=== PATIENT | female | born 1960 | race Caucasian/White ===

== ENCOUNTER → 2017-08-29 | Outpatient (CLI) | payer BC ==
[2017-08-29 09:24] LABS: HEMATOCRIT 42.4 % (34.6-47.8); HEMOGLOBIN 14.2 g/dL (11.7-16.4); WHITE BLOOD COUNT 6.1 x10^3/uL (3.4-10)
[2017-08-29 09:36] LABS: BLOOD UREA NITROGEN 16 mg/dL (7-18)
[2017-08-29 09:41] LABS: ASPARTATE AMINO TRANSFERASE 23 U/L (15-37)
== END | disposition home or self-care (01) ==
LOC: STAR 08:22
PROVIDERS: ATTEND Urology
DX: Z01.811 Encounter for preprocedural respiratory examination (principal); J45.909 Unspecified asthma, uncomplicated; M12.9 Arthropathy, unspecified; D41.02 Neoplasm of uncertain behavior of left kidney
CPT/HCPCS: 36415; 71020; 80053; 81003; 85025; 87077; 87086

== ENCOUNTER 2017-09-04 07:30 | Day surgery (SDC) | payer BC ==
[2017-08-29 08:22] VITALS: BP 134/89
[~2017-09-04] VITALS: Ht 180.3 cm; Wt 78.4 kg
[~2017-09-04 07:30] MED LIST: CETI1TAB33 PO; CHOL2000 PO
[2017-09-04] MEDS ORDERED: LACTATED RINGERS 1,000 ML IV SCH ×2 (07:57→08:06)
[2017-09-04] MEDS ORDERED: LIDOCAINE 1%, 2ML SQ PRN ×2 (08:00→08:30)
[2017-09-04] MEDS ORDERED: MIDAZOLAM 1 MG/ML, 5ML ONE (09:34)
[2017-09-04] MEDS ORDERED: FENTANYL PF 100 MCG/2ML ONE (09:34)
[2017-09-04] MEDS ORDERED: ONDANSETRON 2MG/ML, 2ML ONE (09:42)
[2017-09-04] MEDS ORDERED: SUCCINYLCHOLINE 20 MG/ML, 10ML ONE (09:42)
[2017-09-04] MEDS ORDERED: PROPOFOL 10 MG/ML, 20ML ONE (09:42)
[2017-09-04] MEDS ORDERED: ROCURONIUM 10 MG/ML,10ML ONE (09:42)
[2017-09-04] MEDS ORDERED: DEXAMETHASONE 4 MG/ML, 1ML ONE (09:42)
[2017-09-04] MEDS ORDERED: LIDOCAINE 2%, 20ML ONE (10:00)
[2017-09-04] MEDS ORDERED: PROMETHAZINE 25 MG/ML, 1ML IV PRN (11:30)
[2017-09-04] MEDS ORDERED: MIDAZOLAM 1 MG/ML, 2ML IV PRN (11:30)
[2017-09-04] MEDS ORDERED: ACETAMINOPHEN 325 MG TABLET PO PRN (11:30)
[2017-09-04] MEDS ORDERED: ALBUTEROL SULFATE 2.5 MG/3 ML NPPB PRN (11:30)
[2017-09-04] MEDS ORDERED: ONDANSETRON 2MG/ML, 2ML IVPush PRN (11:30)
[2017-09-04] MEDS ORDERED: FENTANYL PF 100 MCG/2ML IV PRN (11:30)
[2017-09-04] MEDS ORDERED: OXYcodone 5 MG/5 ML ORAL.SOL UDC PO PRN (11:30)
[2017-09-04] MEDS ORDERED: hydrALAzine 20 MG/ML, 1ML IV PRN (11:30)
[2017-09-04] MEDS ORDERED: LABETALOL 5MG/ML, 20ML IV PRN (11:30)
[2017-09-04] MEDS ORDERED: HYDROmorphone 1 MG/ML, 1ML IV PRN (11:30)
[2017-09-04] MEDS ORDERED: MEPERIDINE/PF 25MG/0.5ML IVPush PRN (11:30)
== END 2017-09-04 13:05 ==
LOC: RAD 07:30
PROVIDERS: ATTEND Urology
DX: D41.02 Neoplasm of uncertain behavior of left kidney (principal); Z87.39 Personal history of other diseases of the musculoskeletal system and connective tissue; J45.909 Unspecified asthma, uncomplicated; Z98.890 Other specified postprocedural states; Z93.3 Colostomy status; Z91.040 Latex allergy status; Z87.891 Personal history of nicotine dependence
CPT/HCPCS: 36415; 50592; 52332; 77013; 85610; J0330; J1100; J2250; J2405; J2704; J3010; J3490; J7120